=== PATIENT | male | born 1965 | race Caucasian/White ===

== ENCOUNTER 2016-11-24 05:32 | Day surgery (SDC) | payer OTHER ==
[~2016-11-24] VITALS: Ht 165.2 cm; Wt 86.8 kg
[2016-11-24] MEDS ORDERED: SODIUM CHLORIDE 0.9% 1,000 ML IV ONE ×2 (05:47→06:15)
[2016-11-24] MEDS ORDERED: FentaNYL CITRATE-PF 100 MCG/2 ML VIAL ONE (07:22)
[2016-11-24] MEDS ORDERED: MIDAZOLAM HCL 2 MG/2 ML VIAL ONE (07:22)
[2016-11-24] MEDS ORDERED: MethylPREDNISolone SOD SUCC 125 MG/2 ML VIAL IVP ONE (08:30)
[2016-11-24] MEDS ORDERED: MethylPREDNISolone SOD SUCC 125 MG/2 ML VIAL ONE (08:49)
[2016-11-24] MEDS ORDERED: LIDOCAINE HCL 4% 50 ML SOLUTION TP ONE (17:19)
[2016-11-24] MEDS ORDERED: LIDOCAINE HCL 2% 30 ML JELLY TP ONE (17:19)
[2016-11-24] MEDS ORDERED: BENZOCAINE 20% 50 MCG/SPRAY 57 GM TP ONE (17:19)
[2016-11-24] MEDS ORDERED: OXYGEN THERAPY IH SCH (20:00)
== END 2016-11-24 09:45 | disposition home or self-care (01) ==
LOC: SURGERY 05:32 → EDSEX 07:45 → SURGERY 09:45
PROVIDERS: ATTEND Internal Medicine Critical Care Medicine
DX: J38.4 Edema of larynx (principal); B37.0 Candidal stomatitis; J45.909 Unspecified asthma, uncomplicated; M54.9 Dorsalgia, unspecified; Z72.89 Other problems related to lifestyle; Z98.890 Other specified postprocedural states
CPT/HCPCS: 31623; 31624; 71010; 87015; 87070; 87101; 87205; 87220; J2250; J2930; J3010; J7030; 88108; 88312